=== PATIENT | male | born 2000 | race Two or more races ===

== ENCOUNTER 2020-02-04 16:09 | Emergency (ER) | payer MEDICAID ==
[~2020-02-04] VITALS: Ht 172.7 cm; Wt 100.7 kg
[2020-02-04 16:23] VITALS: BP 153/93
[2020-02-04] MEDS ORDERED: KETOROLAC TROMETH 60MG/2ML VIAL IM ONE (18:00)
[2020-02-04] MEDS ORDERED: LIDOCAINE 1% HCL (LOCAL ANESTH.) INJ 20ML MDV ONE (18:15)
[2020-02-04] MEDS ORDERED: cefTRIAXone SOD 1,000 MG VL IM ONE (18:15)
[2020-02-04] MEDS ORDERED: LIDOCAINE 1% HCL (LOCAL ANESTH.) INJ 20ML MDV IJ ONE (18:30)
== END 2020-02-04 18:24 | disposition home or self-care (01) ==
LOC: ER 16:09
DX: L05.01 Pilonidal cyst with abscess (principal)
CPT/HCPCS: 10080; 96372; 99284; J0696; J1885; J2001; 10060

== ENCOUNTER 2020-02-06 12:55 | Emergency (ER) | payer MEDICAID ==
[~2020-02-06] VITALS: Ht 172.7 cm; Wt 100.7 kg
[2020-02-06 13:03] VITALS: BP 126/82
== END 2020-02-06 14:10 | disposition home or self-care (01) ==
LOC: ER 12:55
DX: Z48.01 Encounter for change or removal of surgical wound dressing (principal)

== ENCOUNTER 2020-02-08 13:43 | Emergency (ER) | payer MEDICAID ==
[~2020-02-08] VITALS: Ht 172.7 cm; Wt 99.8 kg
[2020-02-08 13:53] VITALS: BP 110/69
== END 2020-02-08 14:26 | disposition home or self-care (01) ==
LOC: ER 13:43
DX: Z48.01 Encounter for change or removal of surgical wound dressing (principal)

== ENCOUNTER 2021-11-22 14:23 | Inpatient (IN) | payer MEDICAID ==
[~2021-11-22] VITALS: Ht 170.2 cm; Wt 120.2 kg
[2021-11-22] MEDS ORDERED: IOHEXOL 300 MG/ML 100ML BOTTLE IJ ONE (17:30)
[2021-11-22] MEDS ORDERED: ACETAMINOPHEN 325 MG TAB PO ONE (17:30)
[2021-11-22] MEDS ORDERED: CLINDAMYCIN 600MG IV 50 ML IV ONE (17:30)
[2021-11-22] MEDS ORDERED: cefTRIAXone 1GM/50ML D5W 50 ML IV ONE (17:30)
[2021-11-22] MEDS ORDERED: SODIUM CHLORIDE 0.9% 1,000 ML IV ONE (17:30)
[2021-11-22 18:49] LABS: Calcium 9.2 mg/dL (8.5-10.1); Potassium 3.7 mmol/L (3.5-5.1)
[2021-11-22 18:53] LABS: Basophils # (auto) 0.2 10 ^3/uL (0-0.2); Basophils % (auto) 2.1 % (0.0-2.0); Eosinophils # (auto) 0 10 ^3/uL (0-0.8); Eosinophils % (auto) 0.2 % (0.0-7.0); Hematocrit 44.8 % (41.0-53.0); Hemoglobin 14.7 g/dL (13.5-17.5); Lymphocytes # (auto) 1.6 10 ^3/uL (0.4-5.4); Lymphocytes % (auto) 15.5 % (10.0-50.0); Mean Corpuscular Hemoglobin 28.3 pg (28.0-32.0); Mean Corpuscular Hgb Conc. 32.8 g/dL (32.0-36.0); Mean Corpuscular Volume 86.3 fL (80.0-100.0); Monocytes # (auto) 0.5 10 ^3/uL (0-1.3); Neutrophils # (auto) 8.2 10 ^3/uL (1.6-8.6); Neutrophils % (auto) 77.2 % (37.0-80.0); Nucleated Red Blood Cells % 0.3 %; Red Blood Cells 5.19 10^6/uL (4.5-5.90); Red Cell Distribution Width 13.7 % (11.8-14.3); White Blood Cell 10.6 10^3/uL (4.4-10.8)
[2021-11-22 18:54] LABS: BUN/Creatinine Ratio 18.2; Bilirubin, Total 0.5 mg/dL (0.2-1.0); Total Protein 9.5 g/dL (6.4-8.2)
[2021-11-23] MEDS ORDERED: ONDANSETRON HCL 4 MG/2 ML VIAL IV PRN (05:45)
[2021-11-23 06:48] LABS: INR 1.08 (0.9-1.15); Partial Thromboplastin Time 28.5 sec (23.6-33.0)
[2021-11-23] MEDS: CLINDAMYCIN 600MG IV 50 ML IV SCH ×3 (07:08→22:04)
[2021-11-23] MEDS: SODIUM CHLORIDE 0.9% 1,000 ML IV SCH ×2 (07:14→23:55)
[2021-11-23] MEDS: cefTRIAXone 1GM/50ML D5W 50 ML IV SCH (09:19)
[2021-11-23] MEDS ORDERED: MIDAZOLAM HCL 2MG/2ML 2ml VIAL (1mg/ml) ONE (12:41)
[2021-11-23] MEDS ORDERED: fentaNYL CITRATE 100 MCG/2 ML VL ONE (12:41)
[2021-11-23] MEDS ORDERED: PROPOFOL 10 MG/ML 20 ML IV ONE (12:42)
[2021-11-23] MEDS ORDERED: ONDANSETRON HCL 4 MG/2 ML VIAL ONE (12:42)
[2021-11-23] MEDS ORDERED: SODIUM CHLORIDE LOCK 10 ML ONE (12:42)
[2021-11-23] MEDS ORDERED: KETAMINE HCL 10 ML ONE (12:42)
[2021-11-23] MEDS ORDERED: ceFAZolin 1GM/50ML 100 ML IV ONE (12:43)
[2021-11-23] MEDS ORDERED: MORPHINE SULFATE 4 MG/ML SYR/VIAL IV PRN (13:45)
[2021-11-23] MEDS ORDERED: HYDROmorphone HCL 2 MG/ML VL/or syr IV PRN ×2 (13:45)
[2021-11-23] MEDS ORDERED: METOCLOPRAMIDE HCL 5MG/ml INJ 2ml VIAL IV PRN (13:45)
[2021-11-23] MEDS ORDERED: DexAMETHasone SOD PHOS 10MG/1ML VIAL INJ IV ONE (15:02)
[2021-11-23 17:07] VITALS: BP 121/79
[2021-11-23 22:00] VITALS: BP 109/51
[2021-11-23 22:34] VITALS: BP 121/79
[2021-11-24 05:00] VITALS: BP 107/55
[2021-11-24] MEDS: CLINDAMYCIN 600MG IV 50 ML IV SCH ×3 (05:30→21:35)
[2021-11-24 05:56] LABS: Basophils # (auto) 0 10 ^3/uL (0-0.2); Basophils % (auto) 0.4 % (0.0-2.0); Eosinophils # (auto) 0 10 ^3/uL (0-0.8); Eosinophils % (auto) 0.4 % (0.0-7.0); Hematocrit 39.1 % (41.0-53.0); Lymphocytes # (auto) 1.4 10 ^3/uL (0.4-5.4); Lymphocytes % (auto) 13.9 % (10.0-50.0); Mean Corpuscular Hemoglobin 28.5 pg (28.0-32.0); Mean Corpuscular Hgb Conc. 33.2 g/dL (32.0-36.0); Monocytes # (auto) 0.8 10 ^3/uL (0-1.3); Monocytes % (auto) 8.1 % (0.0-12.0); Neutrophils # (auto) 7.9 10 ^3/uL (1.6-8.6); Neutrophils % (auto) 77.2 % (37.0-80.0); Red Blood Cells 4.54 10^6/uL (4.5-5.90); Red Cell Distribution Width 13.5 % (11.8-14.3); White Blood Cell 10.3 10^3/uL (4.4-10.8)
[2021-11-24 06:04] LABS: BUN/Creatinine Ratio 15.9; Calcium 9.1 mg/dL (8.5-10.1); Potassium 3.8 mmol/L (3.5-5.1)
[2021-11-24 08:00] VITALS: BP 113/59
[2021-11-24] MEDS: SODIUM CHLORIDE 0.9% 1,000 ML IV SCH ×2 (08:25→12:30)
[2021-11-24] MEDS: cefTRIAXone 1GM/50ML D5W 50 ML IV SCH (09:00)
[2021-11-24 12:00] VITALS: BP 119/67
[2021-11-24 16:00] VITALS: BP 132/64
[2021-11-24 22:22] VITALS: BP 119/69
[2021-11-25 05:17] VITALS: BP 112/68
[2021-11-25] MEDS: CLINDAMYCIN 600MG IV 50 ML IV SCH ×3 (06:15→21:42)
[2021-11-25] MEDS: SODIUM CHLORIDE 0.9% 1,000 ML IV SCH (08:30)
[2021-11-25 08:43] VITALS: BP 126/70
[2021-11-25] MEDS: cefTRIAXone 1GM/50ML D5W 50 ML IV SCH (11:37)
[2021-11-25 12:53] VITALS: BP 126/70
[2021-11-25 16:59] VITALS: BP 123/64
[2021-11-25 22:00] VITALS: BP 123/67
[2021-11-26] MEDS: SODIUM CHLORIDE 0.9% 1,000 ML IV SCH ×2 (04:30→05:30)
[2021-11-26 05:00] VITALS: BP 106/63
[2021-11-26] MEDS: CLINDAMYCIN 600MG IV 50 ML IV SCH (05:55)
[2021-11-26 08:00] VITALS: BP 110/66
[2021-11-26] MEDS: cefTRIAXone 1GM/50ML D5W 50 ML IV SCH (09:46)
[2021-11-26] MEDS ORDERED: CLIN150C PO (10:18)
[2021-11-26 11:58] VITALS: BP 133/82
[2021-11-26 15:21] VITALS: BP 110/66
== END 2021-11-26 16:42 | disposition home or self-care (01) | DRG 383 ==
LOC: ER 14:23 → OVERFLOW 11-23 05:37 → CENTRAL 11-23 15:40
PROVIDERS: ADMIT Nurse Practitioner; ATTEND Internal Medicine
PROC: 0Y9100Z Drainage of Left Buttock with Drainage Device, Open Approach (ICD-10-PCS; principal; 2021-11-23 14:02)
DX: L05.01 Pilonidal cyst with abscess (principal); B95.61 Methicillin susceptible Staphylococcus aureus infection as the cause of diseases classified elsewhere; E66.9 Obesity, unspecified; L91.0 Hypertrophic scar; Z20.822 Contact with and (suspected) exposure to COVID-19; Z68.34 Body mass index [BMI] 34.0-34.9, adult
CPT/HCPCS: 36415; 74177; 80048; 80053; 83605; 85025; 85610; 85730; 86850; 86900; 86901; 87040; 87070; 87075; 87077; 87186; 87205; 96361; 96365; 96366; 96368; G0378; J0690; J0696; J1100; J2250; J2405; J2704; J3490